=== PATIENT | female | born 1980 | race Caucasian/White ===

== ENCOUNTER 2016-07-04 21:54 | Emergency (ER) | payer OTHER ==
--- NOTE | 2016-07-04 23:09 | DIAGNOSTIC IMAGING REPORT ---
PROCEDURE: XR SINUSES LESS THAN 3 VIEWS INDICATION: MAXILLARY PRESSURE TECHNIQUE: Single Chambers view of the sinuses COMPARISON: None. FINDINGS: Normally aerated frontal and maxillary sinuses. Nasal passages clear. Septum is relatively midline. Mastoid cavities normally aerated. No facial bone fractures. No suspicious soft tissue calcifications or radiodense foreign bodies. IMPRESSION: 1. No radiographic evidence of acute sinus disease.
--- NOTE | 2016-07-04 23:12 | ED NURSING NOTES ---
Clinical Report - Nurses [facility] [address] [place] [address] 07/04/2016 21:56 Patient: CATRINA PAN TRIAGE Triage time 2208 PM. Acuity: LEVEL 5. Chief Complaint: HEADACHE and FACIAL PAIN. Alert. No acute distress. SEPSIS SCREEN: Sepsis Screen. Negative (no infection suspected/documented). DOMINICK COMA SCORE: Dominick Coma Scale: 15- eyes open spontaneously (4); best verbal response- oriented x 4 (5); best motor response- obeys commands (6). --22:20 Jazzmine Rich R.N. 22:07 07/04/16. BP: 118/85. HR: 79. RR: 17. O2 saturation: 100% on room air. Temp: 98.4 F. Pain level now: 10/16. --22:20 Jazzmine Rich R.N. Weight: 72.5 kg stated. Height/Length: 64 inches Per Patient. BMI: 27.5. --22:07 Jazzmine Rich R.N. Medications Multivitamins Oral. --22:12 Jazzmine Rich R.N. Effexor XR Oral 150 mg. --22:12 Jazzmine Rich R.N. Medication/allergy information source: the patient. --22:20 Jazzmine Rich R.N. Allergies No Known Drug Allergy. --22:12 Jazzmine Rich R.N. History Arrived by private vehicle. Historian: patient. Accompanied by family. Primary physician ([facility]). ( Pt states has been ongoing for 4 months of pressure in her head, H/A neck stiffness, n/v, feeling weak, "not herself" possible fevers. Has seen a chiropractor who she found some relief, but has not gone back. Pt does not feel "right "). This started 4 months. She has had new onset of numbness (back of neck). She has had sinus pain. No nausea, vomiting, weakness or fever. 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 PAST MEDICAL HX: Immunizations: up-to-date. 2. Para 2. Sexual history - sexually active. Uses an intrauterine device. SOCIAL HX: Never smoker. Occasional alcohol use. No drug use. No recent travel. She has had contact with a sick child. Symptoms of the sick contact include abdominal pain, nausea, vomiting and diarrhea. No infectious disease exposure. ABUSE ASSESSMENT: No report of abuse. SELF HARM ASSESSMENT: A self harm assessment was performed. The patient answered "no" to the question "Do you have thoughts of harming or killing yourself?" and "Have you recently had thoughts about harming or killing others?". FALL RISK ASSESSMENT: Fall risk assessment completed. No fall risk identified. NUTRITIONAL RISK ASSESSMENT: The nutritional risk assessment revealed no deficiencies. FUNCTIONAL ASSESSMENT: Functional assessment: no impairments noted. LEARNING NEEDS ASSESSMENT: The learning needs assessment revealed no barriers. SKIN INTEGRITY ASSESSMENT: Skin integrity risk assessment completed. No skin integrity risk identified. --22:20 Jazzmine Rich R.N. ( Pt also states of being extremely dry mouth). --22:22 Jazzmine Rich R.N. PROBLEMS: Migraine Headache. Depression. Back Pain. Abdominal Pain. Acute Pain. LNMP - Last Normal Menstrual Period. --22:13 Jazzmine Rich R.N. Interventions ID band on patient. --22:20 Jazzmine Rich R.N. PHYSICAL ASSESSMENT Ambulatory to room. GENERAL / NEURO / PSYCH: Alert. Oriented X 4. Appears in no acute distress. Speech within normal limits. Pupillary exam: Right pupil 2mm, round and briskly reactive to light directly. Left pupil: 2mm, round and briskly reactive to light directly. HEENT: Pupils equal, round and reactive to light. RESPIRATORY: Respirations not labored. Breath sounds within normal limits. CVS: Capillary refill less than 2 seconds. GI / : Abdomen soft and nontender. SKIN: Skin is warm and dry. --22:22 Jazzmine Rich R.N. NURSING PROGRESS NOTES The initial plan of care for this patient has been created This plan of care was discussed with the patient. Patient gowned. Warming measures: blanket applied. Reassurance given. Lights dimmed. Call light placed in reach. Side rails up x 1. Bed placed in lowest position. Brakes of bed on. --22:22 Jazzmine Rich R.N. DISPOSITION / DISCHARGE Departure time: 2316. Condition at departure: stable. The goals identified in the patient's plan of care were met. No learning barriers present. Discharge instructions provided and reviewed with the patient. Reviewed medication(s) side effects, precautions, dosing and course information. Prescription(s) given to the patient (Catrina verbalizes importance of not driving and/or operating any heavy machinery while taking muscle relaxant. She verbalizes safe, proper use of all prescribed pain meds for optimal pain management at home.). Patient verbalized understanding. Written instructions provided in [place]an. ( Catrina verbalizes understanding of all d/c instructions including need to f/u with PCP. She has no questions and voices no concerns at this time.). The patient was discharged by the physician. She was discharged home and accompanied by family. She left the Emergency Department ambulatory and via private vehicle. Family member driving. DOMINICK COMA SCORE: Dominick Coma Scale: 15- eyes open spontaneously (4); best verbal response- oriented x 4 (5); best motor response- obeys commands (6). --23:27 Bradley Laboy R.N. 23:19 07/04/16. BP: 113/73 (regular adult cuff) taken on the left arm, via an automated monitor, while sitting. HR: 67 (normal rate). RR: 16 (regular, unlabored and normal). O2 saturation: 100% on room air. Temp: 98.4 F (oral). Pain level now: 10/16. --23:27 Bradley Laboy R.N. Locked/Released at 07/04/2016 23:28 by Bradley Laboy R.N.
--- NOTE | 2016-07-04 23:12 | ED NURSING NOTES ---
Clinical Report - Nurses [facility] [address] [place] [address] 07/04/2016 21:56 Patient: CATRINA PAN TRIAGE Triage time 2208 PM. Acuity: LEVEL 5. Chief Complaint: HEADACHE and FACIAL PAIN. Alert. No acute distress. SEPSIS SCREEN: Sepsis Screen. Negative (no infection suspected/documented). DOMINICK COMA SCORE: Dominick Coma Scale: 15- eyes open spontaneously (4); best verbal response- oriented x 4 (5); best motor response- obeys commands (6). --22:20 Jazzmine Rich R.N. 22:07 07/04/16. BP: 118/85. HR: 79. RR: 17. O2 saturation: 100% on room air. Temp: 98.4 F. Pain level now: 10/16. --22:20 Jazzmine Rich R.N. Weight: 72.5 kg stated. Height/Length: 64 inches Per Patient. BMI: 27.5. --22:07 Jazzmine Rich R.N. Medications Multivitamins Oral. --22:12 Jazzmine Rich R.N. Effexor XR Oral 150 mg. --22:12 Jazzmine Rich R.N. Medication/allergy information source: the patient. --22:20 Jazzmine Rich R.N. Allergies No Known Drug Allergy. --22:12 Jazzmine Rich R.N. History Arrived by private vehicle. Historian: patient. Accompanied by family. Primary physician ([facility]). ( Pt states has been ongoing for 4 months of pressure in her head, H/A neck stiffness, n/v, feeling weak, "not herself" possible fevers. Has seen a chiropractor who she found some relief, but has not gone back. Pt does not feel "right "). This started 4 months. She has had new onset of numbness (back of neck). She has had sinus pain. No nausea, vomiting, weakness or fever. 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 PAST MEDICAL HX: Immunizations: up-to-date. 2. Para 2. Sexual history - sexually active. Uses an intrauterine device. SOCIAL HX: Never smoker. Occasional alcohol use. No drug use. No recent travel. She has had contact with a sick child. Symptoms of the sick contact include abdominal pain, nausea, vomiting and diarrhea. No infectious disease exposure. ABUSE ASSESSMENT: No report of abuse. SELF HARM ASSESSMENT: A self harm assessment was performed. The patient answered "no" to the question "Do you have thoughts of harming or killing yourself?" and "Have you recently had thoughts about harming or killing others?". FALL RISK ASSESSMENT: Fall risk assessment completed. No fall risk identified. NUTRITIONAL RISK ASSESSMENT: The nutritional risk assessment revealed no deficiencies. FUNCTIONAL ASSESSMENT: Functional assessment: no impairments noted. LEARNING NEEDS ASSESSMENT: The learning needs assessment revealed no barriers. SKIN INTEGRITY ASSESSMENT: Skin integrity risk assessment completed. No skin integrity risk identified. --22:20 Jazzmine Rich R.N. ( Pt also states of being extremely dry mouth). --22:22 Jazzmine Rich R.N. PROBLEMS: Migraine Headache. Depression. Back Pain. Abdominal Pain. Acute Pain. LNMP - Last Normal Menstrual Period. --22:13 Jazzmine Rich R.N. Interventions ID band on patient. --22:20 Jazzmine Rich R.N. PHYSICAL ASSESSMENT Ambulatory to room. GENERAL / NEURO / PSYCH: Alert. Oriented X 4. Appears in no acute distress. Speech within normal limits. Pupillary exam: Right pupil 2mm, round and briskly reactive to light directly. Left pupil: 2mm, round and briskly reactive to light directly. HEENT: Pupils equal, round and reactive to light. RESPIRATORY: Respirations not labored. Breath sounds within normal limits. CVS: Capillary refill less than 2 seconds. GI / : Abdomen soft and nontender. SKIN: Skin is warm and dry. --22:22 Jazzmine Rich R.N. NURSING PROGRESS NOTES The initial plan of care for this patient has been created This plan of care was discussed with the patient. Patient gowned. Warming measures: blanket applied. Reassurance given. Lights dimmed. Call light placed in reach. Side rails up x 1. Bed placed in lowest position. Brakes of bed on. --22:22 Jazzmine Rich R.N. DISPOSITION / DISCHARGE Departure time: 2316. Condition at departure: stable. The goals identified in the patient's plan of care were met. No learning barriers present. Discharge instructions provided and reviewed with the patient. Reviewed medication(s) side effects, precautions, dosing and course information. Prescription(s) given to the patient (Catrina verbalizes importance of not driving and/or operating any heavy machinery while taking muscle relaxant. She verbalizes safe, proper use of all prescribed pain meds for optimal pain management at home.). Patient verbalized understanding. Written instructions provided in [place]er. ( Catrina verbalizes understanding of all d/c instructions including need to f/u with PCP. She has no questions and voices no concerns at this time.). The patient was discharged by the physician. She was discharged home and accompanied by family. She left the Emergency Department ambulatory and via private vehicle. Family member driving. DOMINICK COMA SCORE: Dominick Coma Scale: 15- eyes open spontaneously (4); best verbal response- oriented x 4 (5); best motor response- obeys commands (6). --23:27 Bradley Laboy R.N. 23:19 07/04/16. BP: 113/73 (regular adult cuff) taken on the left arm, via an automated monitor, while sitting. HR: 67 (normal rate). RR: 16 (regular, unlabored and normal). O2 saturation: 100% on room air. Temp: 98.4 F (oral). Pain level now: 10/16. --23:27 Bradley Laboy R.N. Locked/Released at 07/04/2016 23:28 by Bradley Laboy R.N.
--- NOTE | 2016-07-04 23:12 | ED ORDER SUMMARY ---
..... Patient: CATRINA PAN OrderSheet [facility] VisitID: [id number] [address] [place] [address] 36y, F Registration Date/Time: 07/04/2016 ORDER SHEET Weight: 72.5 kg (stated) Allergies: No Known Drug Allergy GENERAL ORDERS: Sinuses less than 3V Urgent (22:35 07/04/2016 Krys AHN) (Ack 22:36 Shiela) (22:47 Bob R.NLuis Angel) MEDICATION ORDERS: IV FLUIDS: ORDER SHEET NOTES: [Electronically signed by Bradley Laboy R.N. (23:28 07/04/2016)] [Electronically signed by Sukumar Kaur MD (10:42 07/08/2016)] [Electronically locked/signed by Bradley Laboy R.N. (23:28 07/04/2016)]
--- NOTE | 2016-07-04 23:12 | ED CLINICAL REPORT ---
Clinical Report - Physicians/Mid Levels [facility] [address] [place] [address] 07/04/2016 21:56 Patient: CATRINA PAN Time Seen: 22:23 Jul 04 2016. Arrived- By private vehicle. Historian- patient. CPT: ER phys charges level 3 (#[id number]). HISTORY OF PRESENT ILLNESS Chief Complaint: HEADACHE and FACIAL PAIN. Is still present. 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 It is described as similar to previous headaches. Located in the right temporal, frontal, left temporal and occipital region. At its maximum, severity described as moderate. When seen in the E.D., severity described as moderate. Modifying factors: worsened by moving head; relieved by rest. No preceding symptoms, blurred vision, photophobia, associated nausea or numbness. No weakness or vomiting. 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 Recent medical care: The patient was seen recently at another facility in the office (Chiropractor 1 month ago.). Seen for similar symptoms. Evaluation/treatment- Manipulation of neck and face. Resolved symptoms 100%. Diagnosis: headache. ( Has not been back to the chiro). REVIEW OF SYSTEMS No fever, ear pain, sore throat, head injury or chest pain. No difficulty breathing, cough, abdominal pain, diarrhea or pain with urination. No skin rash or enlarged lymph nodes. She has had moderate sinus pressure . Associated symptoms do not include fever, sinus drainage or nausea and muscle aches. All systems otherwise negative, except as recorded above. PAST HISTORY Migraine Headache. Depression. Back Pain. Abdominal Pain. Medications: Effexor XR Oral 150 mg. Multivitamins Oral. Allergies: No Known Drug Allergy. SOCIAL HISTORY Never smoker. Occasional alcohol use. No drug use. ADDITIONAL NOTES The nursing notes have been reviewed. PHYSICAL EXAM Vital Signs: 07/04/2016 22:07 BP: 118/85. HR: 79. RR: 17. O2 saturation: 100%. Temp: 98.4 F. Pain level now: 6/10. Appearance: Alert. Eyes: Pupils equal, round and reactive to light. Eyes normal inspection. (Pain improved with palpation of the temporalis, masseters and occipital musculature.). ENT: Ears normal. Nose normal. Pharynx normal. Neck: Neck supple. CVS: Normal heart rate and rhythm. Heart sounds normal. Pulses normal. Respiratory: No respiratory distress. Breath sounds normal. Abdomen: Soft and nontender. Back: Normal inspection. Skin: Normal skin color. No rash. Extremities: Extremities exhibit normal ROM. Neuro: Oriented X 3. Alert. Mood/affect normal. Speech normal. Cranial nerves normal (as tested). No cerebellar findings. No motor deficit. No sensory deficit. Reflexes normal. LABS, X-RAYS, AND EKG Note - Tests: (Chambers sinus negative.). PROGRESS AND PROCEDURES Patient/family counseled. Disposition: Discharged. Condition: stable. CLINICAL IMPRESSION Musculoskeletal pain and headache. INSTRUCTIONS Apply moist heat for 15-20 minutes three times a day for five days until better. No strenuous activity. Rest. (try to get back to chiropractor.). Warnings: Further evaluation is necessary. GENERAL WARNINGS: Return or contact your physician immediately if your condition worsens or changes unexpectedly, if not improving as expected, or if other problems arise. Prescription Medications: Ibuprofen 600mg tablets: take 1 tablet orally every 8 hours as needed for pain. Dispense thirty (30). No refills. Flexeril 5 mg: take 1-2 orally every 8 hours as needed for muscle spasm or pain. Dispense fifteen (15). No refills. Substitution is permissible. Follow-up: Follow up with your doctor in one week. Call for an appointment. Understanding of the discharge instructions verbalized by patient. (Electronically signed by Sukumar Kaur MD 07/08/2016 10:42)
--- NOTE | 2016-07-04 23:12 | ED ORDER SUMMARY ---
..... Patient: CATRINA PAN OrderSheet [facility] VisitID: [id number] [address] [place] [address] 36y, F Registration Date/Time: 07/04/2016 ORDER SHEET Weight: 72.5 kg (stated) Allergies: No Known Drug Allergy GENERAL ORDERS: Sinuses less than 3V Urgent (22:35 07/04/2016 Krys AHN) (Ack 22:36 Shiela) (22:47 Bob R.NLuis Angel) MEDICATION ORDERS: IV FLUIDS: ORDER SHEET NOTES: [Electronically signed by Bradley Laboy R.N. (23:28 07/04/2016)] [Electronically signed by Sukumar Kaur MD (10:42 07/08/2016)] [Electronically locked/signed by Bradley Laboy R.N. (23:28 07/04/2016)]
--- NOTE | 2016-07-04 23:12 | ED CLINICAL REPORT ---
Clinical Report - Physicians/Mid Levels [facility] [address] [place] [address] 07/04/2016 21:56 Patient: CATRINA PAN Time Seen: 22:23 Jul 04 2016. Arrived- By private vehicle. Historian- patient. CPT: ER phys charges level 3 (#[id number]). HISTORY OF PRESENT ILLNESS Chief Complaint: HEADACHE and FACIAL PAIN. Is still present. 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 It is described as similar to previous headaches. Located in the right temporal, frontal, left temporal and occipital region. At its maximum, severity described as moderate. When seen in the E.D., severity described as moderate. Modifying factors: worsened by moving head; relieved by rest. No preceding symptoms, blurred vision, photophobia, associated nausea or numbness. No weakness or vomiting. 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 Recent medical care: The patient was seen recently at another facility in the office (Chiropractor 1 month ago.). Seen for similar symptoms. Evaluation/treatment- Manipulation of neck and face. Resolved symptoms 100%. Diagnosis: headache. ( Has not been back to the chiro). REVIEW OF SYSTEMS No fever, ear pain, sore throat, head injury or chest pain. No difficulty breathing, cough, abdominal pain, diarrhea or pain with urination. No skin rash or enlarged lymph nodes. She has had moderate sinus pressure . Associated symptoms do not include fever, sinus drainage or nausea and muscle aches. All systems otherwise negative, except as recorded above. PAST HISTORY Migraine Headache. Depression. Back Pain. Abdominal Pain. Medications: Effexor XR Oral 150 mg. Multivitamins Oral. Allergies: No Known Drug Allergy. SOCIAL HISTORY Never smoker. Occasional alcohol use. No drug use. ADDITIONAL NOTES The nursing notes have been reviewed. PHYSICAL EXAM Vital Signs: 07/04/2016 22:07 BP: 118/85. HR: 79. RR: 17. O2 saturation: 100%. Temp: 98.4 F. Pain level now: 6/10. Appearance: Alert. Eyes: Pupils equal, round and reactive to light. Eyes normal inspection. (Pain improved with palpation of the temporalis, masseters and occipital musculature.). ENT: Ears normal. Nose normal. Pharynx normal. Neck: Neck supple. CVS: Normal heart rate and rhythm. Heart sounds normal. Pulses normal. Respiratory: No respiratory distress. Breath sounds normal. Abdomen: Soft and nontender. Back: Normal inspection. Skin: Normal skin color. No rash. Extremities: Extremities exhibit normal ROM. Neuro: Oriented X 3. Alert. Mood/affect normal. Speech normal. Cranial nerves normal (as tested). No cerebellar findings. No motor deficit. No sensory deficit. Reflexes normal. LABS, X-RAYS, AND EKG Note - Tests: (Chambers sinus negative.). PROGRESS AND PROCEDURES Patient/family counseled. Disposition: Discharged. Condition: stable. CLINICAL IMPRESSION Musculoskeletal pain and headache. INSTRUCTIONS Apply moist heat for 15-20 minutes three times a day for five days until better. No strenuous activity. Rest. (try to get back to chiropractor.). Warnings: Further evaluation is necessary. GENERAL WARNINGS: Return or contact your physician immediately if your condition worsens or changes unexpectedly, if not improving as expected, or if other problems arise. Prescription Medications: Ibuprofen 600mg tablets: take 1 tablet orally every 8 hours as needed for pain. Dispense thirty (30). No refills. Flexeril 5 mg: take 1-2 orally every 8 hours as needed for muscle spasm or pain. Dispense fifteen (15). No refills. Substitution is permissible. Follow-up: Follow up with your doctor in one week. Call for an appointment. Understanding of the discharge instructions verbalized by patient. (Electronically signed by Sukumar Kaur MD 07/08/2016 10:42)
--- NOTE | 2016-07-08 10:43 | ED DISCHARGE INSTRUCTIONS ---
Patient: CATRINA PAN General Instructions [facility] VisitID: [id number] [address] [place] [address] 36y, F Registration Date/Time: 07/04/2016 Musculoskeletal pain and headache. INSTRUCTIONS Apply moist heat for 15-20 minutes three times a day for five days until better. No strenuous activity. Rest. (try to get back to chiropractor.). Warnings: Further evaluation is necessary. GENERAL WARNINGS: Return or contact your physician immediately if your condition worsens or changes unexpectedly, if not improving as expected, or if other problems arise. Prescription Medications: Ibuprofen 600mg tablets: take 1 tablet orally every 8 hours as needed for pain. Dispense thirty (30). No refills. Flexeril 5 mg: take 1-2 orally every 8 hours as needed for muscle spasm or pain. Dispense fifteen (15). No refills. Substitution is permissible. Follow-up: Follow up with your doctor in one week. Call for an appointment. Understanding of the discharge instructions verbalized by patient. ADDITIONAL INFORMATION Cyclobenzaprine Hydrochloride Oral tablet What is this medicine? CYCLOBENZAPRINE (sye kloe SRINI za preen) is a muscle relaxer. It is used to treat muscle pain, spasms, and stiffness. How should I use this medicine? Take this medicine by mouth with a glass of water. Follow the directions on the prescription label. If this medicine upsets your stomach, take it with food or milk. Take your medicine at regular intervals. Do not take it more often than directed. Talk to your blunger regarding the use of this medicine in children. Special care may be needed. What side effects may I notice from receiving this medicine? Side effects that you should report to your doctor or health home care giver as soon as possible: allergic reactions like skin rash, itching or hives, swelling of the face, lips, or tongue chest pain fast heartbeat hallucinations seizures vomiting Side effects that usually do not require medical attention (report to your doctor or health home care giver if they continue or are bothersome): headache What may interact with this medicine? Do not take this medicine with any of the following medications: cisapride droperidol flecainide grepafloxacin halofantrine levomethadyl MAOIs like Carbex, Eldepryl, Marplan, Nardil, and Parnate nilotinib pimozide probucol sertindole This medicine may also interact with the following medications: abarelix alcohol contrast dyes dolasetron guanethidine medicines for cancer medicines for depression, anxiety, or psychotic disturbances medicines to treat an irregular heartbeat medicines used for sleep or numbness during surgery or procedure methadone octreotide ondansetron palonosetron phenothiazines like chlorpromazine, mesoridazine, prochlorperazine, thioridazine some medicines for infection like alfuzosin, chloroquine, clarithromycin, levofloxacin, mefloquine, pentamidine, troleandomycin tramadol vardenafil What if I miss a dose? If you miss a dose, take it as soon as you can. If it is almost time for your next dose, take only that dose. Do not take double or extra doses. Where should I keep my medicine? Keep out of the reach of children. Store at room temperature between 15 and 30 degrees C (59 and 86 degrees F). Keep container tightly closed. Throw away any unused medicine after the expiration date. What should I tell my health care provider before I take this medicine? They need to know if you have any of these conditions: heart disease, irregular heartbeat, or previous heart attack liver disease thyroid problem an unusual or allergic reaction to cyclobenzaprine, tricyclic antidepressants, lactose, other medicines, foods, dyes, or preservatives or trying to get breast-feeding What should I watch for while using this medicine? Check with your doctor or health home care giver if your condition does not improve within 1 to 3 weeks. You may get drowsy or dizzy when you first start taking the medicine or change doses. Do not drive, use machinery, or do anything that may be dangerous until you know how the medicine affects you. Stand or sit up slowly. Your mouth may get dry. Drinking water, chewing sugarless gum, or sucking on hard candy may help. You have been given the following additional information: Cyclobenzaprine Hydrochloride Oral tablet No strenuous activity. Rest. (Electronically signed by Sukumar Kaur MD 07/08/2016 10:42)
--- NOTE | 2016-07-08 10:43 | ED MAR SUMMARY ---
..... Medication Administration Record [address] [place], [place] [id number] Patient: CATRINA PAN Visit ID: [id number] 36y, F Weight: 72.5 kg Height/Length: 64 in BMI: 27.5 ALLERGIES: No Known Drug Allergy
--- NOTE | 2016-07-08 10:43 | ED MAR SUMMARY ---
..... Medication Administration Record [facility] [address] [place], [place] [id number] Patient: CATRINA PAN Visit ID: [id number] 36y, F Weight: 72.5 kg Height/Length: 64 in BMI: 27.5 ALLERGIES: No Known Drug Allergy
--- NOTE | 2016-07-08 10:43 | ED MED RECONCILIATION SUMMARY ---
Patient: CATRINA PAN Medication Reconciliation Report [facility] VisitID: [id number] [address] [place] [address] 36y, F Registration Date/Time: 07/04/2016 Weight: 72.5 kg Height/Length: 64 in. BMI: 27.5 ALLERGIES: No Known Drug Allergy The patient's Home Medications are listed below: THE FOLLOWING MEDICATIONS NEED TO BE RECONCILED: Effexor XR Oral 150 mg Multivitamins Oral The source(s) of the original Home Medication information: patient The following Medications were given to the patient in the Emergency Department: None. The following Medications were prescribed to the patient: Ibuprofen 600mg tablets: take 1 tablet orally every 8 hours as needed for pain. Dispense thirty (30). No refills. -- Sukumar Kaur MD Flexeril 5 mg: take 1-2 orally every 8 hours as needed for muscle spasm or pain. Dispense fifteen (15). No refills. Substitution is permissible. -- Sukumar Kaur MD
--- NOTE | 2016-07-08 10:43 | ED DISCHARGE INSTRUCTIONS ---
Patient: CATRINA PAN General Instructions [facility] VisitID: [id number] [address] [place] [address] 36y, F Registration Date/Time: 07/04/2016 Musculoskeletal pain and headache. INSTRUCTIONS Apply moist heat for 15-20 minutes three times a day for five days until better. No strenuous activity. Rest. (try to get back to chiropractor.). Warnings: Further evaluation is necessary. GENERAL WARNINGS: Return or contact your physician immediately if your condition worsens or changes unexpectedly, if not improving as expected, or if other problems arise. Prescription Medications: Ibuprofen 600mg tablets: take 1 tablet orally every 8 hours as needed for pain. Dispense thirty (30). No refills. Flexeril 5 mg: take 1-2 orally every 8 hours as needed for muscle spasm or pain. Dispense fifteen (15). No refills. Substitution is permissible. Follow-up: Follow up with your doctor in one week. Call for an appointment. Understanding of the discharge instructions verbalized by patient. ADDITIONAL INFORMATION Cyclobenzaprine Hydrochloride Oral tablet What is this medicine? CYCLOBENZAPRINE (sye kloe SRINI za preen) is a muscle relaxer. It is used to treat muscle pain, spasms, and stiffness. How should I use this medicine? Take this medicine by mouth with a glass of water. Follow the directions on the prescription label. If this medicine upsets your stomach, take it with food or milk. Take your medicine at regular intervals. Do not take it more often than directed. Talk to your ship washer regarding the use of this medicine in children. Special care may be needed. What side effects may I notice from receiving this medicine? Side effects that you should report to your doctor or health animal caregiver as soon as possible: allergic reactions like skin rash, itching or hives, swelling of the face, lips, or tongue chest pain fast heartbeat hallucinations seizures vomiting Side effects that usually do not require medical attention (report to your doctor or health animal caregiver if they continue or are bothersome): headache What may interact with this medicine? Do not take this medicine with any of the following medications: cisapride droperidol flecainide grepafloxacin halofantrine levomethadyl MAOIs like Carbex, Eldepryl, Marplan, Nardil, and Parnate nilotinib pimozide probucol sertindole This medicine may also interact with the following medications: abarelix alcohol contrast dyes dolasetron guanethidine medicines for cancer medicines for depression, anxiety, or psychotic disturbances medicines to treat an irregular heartbeat medicines used for sleep or numbness during surgery or procedure methadone octreotide ondansetron palonosetron phenothiazines like chlorpromazine, mesoridazine, prochlorperazine, thioridazine some medicines for infection like alfuzosin, chloroquine, clarithromycin, levofloxacin, mefloquine, pentamidine, troleandomycin tramadol vardenafil What if I miss a dose? If you miss a dose, take it as soon as you can. If it is almost time for your next dose, take only that dose. Do not take double or extra doses. Where should I keep my medicine? Keep out of the reach of children. Store at room temperature between 15 and 30 degrees C (59 and 86 degrees F). Keep container tightly closed. Throw away any unused medicine after the expiration date. What should I tell my health care provider before I take this medicine? They need to know if you have any of these conditions: heart disease, irregular heartbeat, or previous heart attack liver disease thyroid problem an unusual or allergic reaction to cyclobenzaprine, tricyclic antidepressants, lactose, other medicines, foods, dyes, or preservatives or trying to get breast-feeding What should I watch for while using this medicine? Check with your doctor or health animal caregiver if your condition does not improve within 1 to 3 weeks. You may get drowsy or dizzy when you first start taking the medicine or change doses. Do not drive, use machinery, or do anything that may be dangerous until you know how the medicine affects you. Stand or sit up slowly. Your mouth may get dry. Drinking water, chewing sugarless gum, or sucking on hard candy may help. You have been given the following additional information: Cyclobenzaprine Hydrochloride Oral tablet No strenuous activity. Rest. (Electronically signed by Sukumar Kaur MD 07/08/2016 10:42)
--- NOTE | 2016-07-08 10:43 | ED MED RECONCILIATION SUMMARY ---
Patient: CATRINA PAN Medication Reconciliation Report [facility] VisitID: [id number] [address] [place] [address] 36y, F Registration Date/Time: 07/04/2016 Weight: 72.5 kg Height/Length: 64 in. BMI: 27.5 ALLERGIES: No Known Drug Allergy The patient's Home Medications are listed below: THE FOLLOWING MEDICATIONS NEED TO BE RECONCILED: Effexor XR Oral 150 mg Multivitamins Oral The source(s) of the original Home Medication information: patient The following Medications were given to the patient in the Emergency Department: None. The following Medications were prescribed to the patient: Ibuprofen 600mg tablets: take 1 tablet orally every 8 hours as needed for pain. Dispense thirty (30). No refills. -- Sukumar Kaur MD Flexeril 5 mg: take 1-2 orally every 8 hours as needed for muscle spasm or pain. Dispense fifteen (15). No refills. Substitution is permissible. -- Sukumar Kaur MD
== END 2016-07-04 23:17 | disposition home or self-care (01) ==
LOC: ED SRH 21:54
DX: M79.1 Myalgia (principal); R51 Headache

== ENCOUNTER 2016-09-01 19:20 | Emergency (ER) | payer OTHER ==
--- NOTE | 2016-09-01 20:18 | ED ORDER SUMMARY ---
..... Patient: CATRINA PAN OrderSheet [facility] VisitID: [id number] [address] [place] [address] 36y, F Registration Date/Time: 09/01/2016 ORDER SHEET Weight: 72.5 kg (stated) Allergies: None GENERAL ORDERS: MEDICATION ORDERS: Hydrocodone-APAP PO 5/325 mg (NOW, HIGH ALERT MEDICATION) (20:11 09/01/2016 HBivens A.R.N.P.) (Ack 20:12 KPage-Kuchan R.N.) (20:26 KPage-Kuchan R.N.) Pepcid PO 40 mg (NOW) (20:11 09/01/2016 HBivens A.R.N.P.) (Ack 20:12 KPage-Kuchan R.N.) (20:26 KPage-Kuchan R.N.) IV FLUIDS: ORDER SHEET NOTES: [Electronically signed by Cal ZapataNLuis Angel (20:45 09/01/2016)] [Electronically signed by Pushpa BianchiR.N.P. (21:20 09/01/2016)] [Electronically locked/signed by Cal Zapata R.N. (20:45 09/01/2016)]
--- NOTE | 2016-09-01 20:18 | ED CLINICAL REPORT ---
Clinical Report - Physicians/Mid Levels [facility] [address] [place] [address] 09/01/2016 19:21 Patient: CATRINA PAN Time Seen: 19:42; upon arrival, initial patient contact, initial documentation, patient care assumed. Arrived- By private vehicle. Historian- patient and mother. HISTORY OF PRESENT ILLNESS Chief Complaint: ABDOMINAL PAIN. At its maximum, severity described as severe. When seen in the E.D., severity described as severe. Modifying factors- relieved by food. Not worsened by anything. It is described as "pain" and burning. No radiation. It is described as located in the epigastric area. This started about 3 - 4 days ago and is still present. It was abrupt in onset and has been constant. No nausea, loss of appetite or vomiting. She has had loose stools. This has occurred only once. No additional abdominal pain. No recent travel. Similar symptoms previously: None. Recent medical care: The patient was seen recently in the office. ( today went to pcp for same thing, given gi cocktail, didn't help, blood work done, no rx given, appt tomorrow with gi). REVIEW OF SYSTEMS No constipation, black stools, hematemesis, difficulty with urination or pain with urination. No urinary frequency, bloody stools, fever, chest pain or difficulty breathing. Denies current . All systems otherwise negative, except as recorded above. PAST HISTORY See nurses notes. ADDITIONAL SURGERIES: Gastric sleeve . --19:38 Page-[place] R.N. SOCIAL HISTORY Never smoker. Occasional alcohol use; consumes wine. No drug use. No recent travel. Is a local resident. FAMILY HISTORY Negative. ADDITIONAL NOTES The nursing notes have been reviewed with agreement regarding the chief complaint, HPI, ROS, PMH and patient medications and allergies. PHYSICAL EXAM Vital Signs: 09/01/2016 19:34 BP: 115/73. HR: 82. RR: 17. O2 saturation: 100%. Temp: 98.2 F. Pain level now: 10. Have been reviewed as normal and appear to be correct. Appearance: Alert. Oriented X3. No acute distress. Eyes: Pupils equal, round and reactive to light. Eyes normal inspection. Neck: Normal inspection. Neck supple. CVS: Normal heart rate and rhythm. Heart sounds normal. Pulses normal. Respiratory: No respiratory distress. Breath sounds normal. Chest nontender. Abdomen: Soft and nontender. Bowel sounds normal. No organomegaly. No mass. Back: Normal inspection. Skin: Skin warm and dry. Normal skin color. No rash. Normal skin turgor. Extremities: Extremities exhibit normal ROM. No lower extremity edema. Neuro: Oriented X 3. No motor deficit. No sensory deficit. PROGRESS AND PROCEDURES Course of Care: labs reviewed from clinic with pt, cbc and cmp done, labs normal, tx plan discussed with doing amylase and lipase or just treating the pain and f/u tomorrow as scheduled with gi, pt decided to just f/u. Patient and family counseled in person regarding the patient's stable condition and diagnosis. Differential Diagnosis: I considered gastritis, peptic ulcer disease, gastroesophageal reflux disease, mesenteric lymphadenitis, diverticulitis, colon cancer, ulcerative colitis, Crohn's disease, biliary colic, cholecystitis, cholelithiasis, hepatitis, pancreatitis, common bile duct obstruction, cholangitis, hernia, urinary tract infection, ureterolithiasis and viral syndrome as a possible cause of abdominal pain in this patient. This is a partial list of diagnoses considered. Above considerations are based on history, physical exam and laboratory data. Differential diagnosis was discussed with patient. Disposition: Discharged home in good and improved condition (20:18). Condition: good and stable. CLINICAL IMPRESSION Acute epigastric abdominal pain of undetermined cause. INSTRUCTIONS Warnings: GENERAL WARNINGS: Return or contact your physician immediately if your condition worsens or changes unexpectedly, if not improving as expected, or if other problems arise. SPECIFICALLY, return if you develop pain in the abdomen or pelvis, fever, the inability to keep fluids down, blood in vomitus, blood in diarrhea, fainting or lightheadedness. Prescription Medications: Pepcid 20 mg RPD: take 1 orally every 12 hours. Dispense thirty (30). No refills. Ultram 50 mg tablets: take 1-2 orally every 6 hours as needed for pain. Dispense twenty (20). No refills. Substitution is permissible. Follow-up: Follow up with a procurement professional logistics tomorrow as scheduled even if well. Summary of care provided to patient. Understanding of the discharge instructions verbalized by patient. (Electronically signed by Pushpa Bianchi A.R.N.P. 09/01/2016 21:20)
--- NOTE | 2016-09-01 20:18 | ED NURSING NOTES ---
Clinical Report - Nurses [facility] [address] [place] [address] 09/01/2016 19:21 Patient: CATRINA PAN TRIAGE Triage time 19:34 Sep 01 2016. Chief Complaint: ABDOMINAL PAIN and (pt went to pcp today for mid abd pain, describes as "burning" pt was given a GI cocktail without relief, pain improves right after eating). Alert. No acute distress. SEPSIS SCREEN: Sepsis Screen. Negative (no infection suspected/documented). --19:41 Cal Zapata R.N. 19:34 09/01/16. BP: 115/73 taken on the left arm, while lying. HR: 82. RR: 17. O2 saturation: 100% on room air. Temp: 98.2 F (oral). Pain level now: 01/16. --19:41 Cal Zapata R.N. Weight: 72.5 kg stated. Height/Length: 64 inches Per Patient. BMI: 27.5. --19:38 Cal Zapata R.N. Medications Prevacid. --19:37 Cal Zapata R.N. Effe. --19:37 Cal Zapata R.N. Calcium + D3 Oral. Effexor XR Oral. Prevacid Oral. --19:38 Cal Zapata R.N. Vitamins Oral. --19:38 Cal Zapata R.N. Medication/allergy information source: the patient. --19:41 Cal Zapata R.N. Allergies None. --19:37 Cal Zapata R.N. History Historian: patient. Onset. (tuesday). She has had diarrhea (after pt saw today). She has had burning, constant abdominal pain. Treatment CRAPS DEALER: (antacids). PAST MEDICAL HX: Immunizations: up-to-date. Last normal menstrual period- August 25. SOCIAL HX: Never smoker. Occasional alcohol use; consumes wine. No drug use. No infectious disease exposure. No known contact with a sick individual. ABUSE ASSESSMENT: No report of abuse. SELF HARM ASSESSMENT: A self harm assessment was performed. The patient answered "no" to the question "Have you recently felt down, depressed, or hopeless?", "Have you noticed less interest or pleasure in doing things?", "Do you have thoughts of harming or killing yourself?", "Are you here because you tried to hurt yourself?", "Have you ever tried to hurt yourself before today?", "Have you recently had thoughts about harming or killing others?" and "Do you have any dangerous items in your possession?". FALL RISK ASSESSMENT: Fall risk assessment completed. No fall risk identified. NUTRITIONAL RISK ASSESSMENT: The nutritional risk assessment revealed no deficiencies. FUNCTIONAL ASSESSMENT: Functional assessment: no impairments noted. LEARNING NEEDS ASSESSMENT: The learning needs assessment revealed no barriers. SKIN INTEGRITY ASSESSMENT: Skin integrity risk assessment completed. No skin integrity risk identified. --19:41 Cal Zapata R.N. ADDITIONAL SURGERIES: Gastric sleeve . --19:38 Cal Zapata R.N. Interventions ID band on patient. To treatment room. --19:41 Cal Zapata R.N. PHYSICAL ASSESSMENT ( per pt "at night if it hurts I will push on it and hunch over and it almost feels better"). GENERAL / NEURO / PSYCH: Alert. Oriented X 4. Appears in no acute distress. HEENT: Mucous membranes are pink. RESPIRATORY: Respirations not labored. Breath sounds within normal limits. CVS: Capillary refill less than 2 seconds. GI / : Abdomen soft and nontender. Bowel sounds within normal limits. SKIN: Skin is warm and dry. --19:42 Cal Zapata R.N. Ambulatory to room. Patient gowned. --19:42 Cal Zapata R.N. NURSING PROGRESS NOTES Head of bed elevated. Reassurance given. Two patient identifiers checked. Call light placed in reach. Side rails up x 1. Bed placed in lowest position. Brakes of bed on. Patient ready for evaluation- chart flagged. Patient waiting for evaluation. --19:42 Cal Zapata R.N. Checked patient name and birthdate: patient confirmed. Instructions provided to collect clean catch urine and patient verbalized understanding. Clean catch urine collected; sample sent to lab for urinalysis. Specimen labeled in the presence of the patient. --19:44 Cal Zapata R.N. 20:21 09/01/2016 Hydrocodone-APAP (Hydrocodone-Acetaminophen) PO 5/325 mg Tablets 1 tab given. Allergies verified, confirmed 5 rights and sedative warning given. --20:26 Cal Zapata R.N. 20:21 09/01/2016 Pepcid (Famotidine) PO Tablets 40 mg given. Allergies verified and confirmed 5 rights. --20:26 Cal Zapata R.N. DISPOSITION / DISCHARGE Departure time: 2013. No learning barriers present. Discharge instructions provided and reviewed with the patient. Reviewed medication(s) side effects, precautions and course information. Prescription(s) given to the patient. Reviewed referrals (pt to keep apt tomorrow with GI dr). Patient verbalized understanding. Written instructions provided in [place]. The patient was discharged by the nurse practitioner. She was discharged home and accompanied by parent. She left the Emergency Department ambulatory and via private vehicle. Parent driving. --20:44 Cal Zapata R.N. 20:42 09/01/16. BP: 109/69. HR: 76. RR: 17. O2 saturation: 100%. Temp: 98 F. Pain level now: 01/16. --20:44 Cal Zapata R.N. Departure time: 2040. ( corrected departure time is 2040). --20:45 Cal Zapata R.N. Locked/Released at 09/01/2016 20:45 by Cal Zapata R.N.
--- NOTE | 2016-09-01 20:18 | ED NURSING NOTES ---
Clinical Report - Nurses [facility] [address] [place] [address] 09/01/2016 19:21 Patient: CATRINA PAN TRIAGE Triage time 19:34 Sep 01 2016. Chief Complaint: ABDOMINAL PAIN and (pt went to pcp today for mid abd pain, describes as "burning" pt was given a GI cocktail without relief, pain improves right after eating). Alert. No acute distress. SEPSIS SCREEN: Sepsis Screen. Negative (no infection suspected/documented). --19:41 Cal Zapata R.N. 19:34 09/01/16. BP: 115/73 taken on the left arm, while lying. HR: 82. RR: 17. O2 saturation: 100% on room air. Temp: 98.2 F (oral). Pain level now: 01/16. --19:41 Cal Zapata R.N. Weight: 72.5 kg stated. Height/Length: 64 inches Per Patient. BMI: 27.5. --19:38 Cal Zapata R.N. Medications Prevacid. --19:37 Cal Zapata R.N. Effe. --19:37 Cal Zapata R.N. Calcium + D3 Oral. Effexor XR Oral. Prevacid Oral. --19:38 Cal Zapata R.N. Vitamins Oral. --19:38 Cal Zapata R.N. Medication/allergy information source: the patient. --19:41 Cal Zapata R.N. Allergies None. --19:37 Cal Zapata R.N. History Historian: patient. Onset. (tuesday). She has had diarrhea (after pt saw today). She has had burning, constant abdominal pain. Treatment STONE GLUER: (antacids). PAST MEDICAL HX: Immunizations: up-to-date. Last normal menstrual period- August 25. SOCIAL HX: Never smoker. Occasional alcohol use; consumes wine. No drug use. No infectious disease exposure. No known contact with a sick individual. ABUSE ASSESSMENT: No report of abuse. SELF HARM ASSESSMENT: A self harm assessment was performed. The patient answered "no" to the question "Have you recently felt down, depressed, or hopeless?", "Have you noticed less interest or pleasure in doing things?", "Do you have thoughts of harming or killing yourself?", "Are you here because you tried to hurt yourself?", "Have you ever tried to hurt yourself before today?", "Have you recently had thoughts about harming or killing others?" and "Do you have any dangerous items in your possession?". FALL RISK ASSESSMENT: Fall risk assessment completed. No fall risk identified. NUTRITIONAL RISK ASSESSMENT: The nutritional risk assessment revealed no deficiencies. FUNCTIONAL ASSESSMENT: Functional assessment: no impairments noted. LEARNING NEEDS ASSESSMENT: The learning needs assessment revealed no barriers. SKIN INTEGRITY ASSESSMENT: Skin integrity risk assessment completed. No skin integrity risk identified. --19:41 Cal Zapata R.N. ADDITIONAL SURGERIES: Gastric sleeve . --19:38 Cal Zapata R.N. Interventions ID band on patient. To treatment room. --19:41 Cal Zapata R.N. PHYSICAL ASSESSMENT ( per pt "at night if it hurts I will push on it and hunch over and it almost feels better"). GENERAL / NEURO / PSYCH: Alert. Oriented X 4. Appears in no acute distress. HEENT: Mucous membranes are pink. RESPIRATORY: Respirations not labored. Breath sounds within normal limits. CVS: Capillary refill less than 2 seconds. GI / : Abdomen soft and nontender. Bowel sounds within normal limits. SKIN: Skin is warm and dry. --19:42 Cal Zapata R.N. Ambulatory to room. Patient gowned. --19:42 Cal Zapata R.N. NURSING PROGRESS NOTES Head of bed elevated. Reassurance given. Two patient identifiers checked. Call light placed in reach. Side rails up x 1. Bed placed in lowest position. Brakes of bed on. Patient ready for evaluation- chart flagged. Patient waiting for evaluation. --19:42 Cal Zapata R.N. Checked patient name and birthdate: patient confirmed. Instructions provided to collect clean catch urine and patient verbalized understanding. Clean catch urine collected; sample sent to lab for urinalysis. Specimen labeled in the presence of the patient. --19:44 Cal Zapata R.N. 20:21 09/01/2016 Hydrocodone-APAP (Hydrocodone-Acetaminophen) PO 5/325 mg Tablets 1 tab given. Allergies verified, confirmed 5 rights and sedative warning given. --20:26 Cal Zapata R.N. 20:21 09/01/2016 Pepcid (Famotidine) PO Tablets 40 mg given. Allergies verified and confirmed 5 rights. --20:26 Cal Zapata R.N. DISPOSITION / DISCHARGE Departure time: 2013. No learning barriers present. Discharge instructions provided and reviewed with the patient. Reviewed medication(s) side effects, precautions and course information. Prescription(s) given to the patient. Reviewed referrals (pt to keep apt tomorrow with GI dr). Patient verbalized understanding. Written instructions provided in [place]. The patient was discharged by the nurse practitioner. She was discharged home and accompanied by parent. She left the Emergency Department ambulatory and via private vehicle. Parent driving. --20:44 Cal Zapata R.N. 20:42 09/01/16. BP: 109/69. HR: 76. RR: 17. O2 saturation: 100%. Temp: 98 F. Pain level now: 01/16. --20:44 Cal Zapata R.N. Departure time: 2040. ( corrected departure time is 2040). --20:45 Cal Zapata R.N. Locked/Released at 09/01/2016 20:45 by Cal Zapata R.N.
--- NOTE | 2016-09-01 20:18 | ED ORDER SUMMARY ---
..... Patient: CATRINA PAN OrderSheet [facility] VisitID: [id number] [address] [place] [address] 36y, F Registration Date/Time: 09/01/2016 ORDER SHEET Weight: 72.5 kg (stated) Allergies: None GENERAL ORDERS: MEDICATION ORDERS: Hydrocodone-APAP PO 5/325 mg (NOW, HIGH ALERT MEDICATION) (20:11 09/01/2016 HBivens A.R.N.P.) (Ack 20:12 KPage-Kuchan R.N.) (20:26 KPage-Kuchan R.N.) Pepcid PO 40 mg (NOW) (20:11 09/01/2016 HBivens A.R.N.P.) (Ack 20:12 KPage-Kuchan R.N.) (20:26 KPage-Kuchan R.N.) IV FLUIDS: ORDER SHEET NOTES: [Electronically signed by Cal ZapataNLuis Angel (20:45 09/01/2016)] [Electronically signed by Pushpa BianchiR.N.P. (21:20 09/01/2016)] [Electronically locked/signed by Cal Zapata R.N. (20:45 09/01/2016)]
--- NOTE | 2016-09-01 20:18 | ED CLINICAL REPORT ---
Clinical Report - Physicians/Mid Levels [facility] [address] [place] [address] 09/01/2016 19:21 Patient: CATRINA PAN Time Seen: 19:42; upon arrival, initial patient contact, initial documentation, patient care assumed. Arrived- By private vehicle. Historian- patient and mother. HISTORY OF PRESENT ILLNESS Chief Complaint: ABDOMINAL PAIN. At its maximum, severity described as severe. When seen in the E.D., severity described as severe. Modifying factors- relieved by food. Not worsened by anything. It is described as "pain" and burning. No radiation. It is described as located in the epigastric area. This started about 3 - 4 days ago and is still present. It was abrupt in onset and has been constant. No nausea, loss of appetite or vomiting. She has had loose stools. This has occurred only once. No additional abdominal pain. No recent travel. Similar symptoms previously: None. Recent medical care: The patient was seen recently in the office. ( today went to pcp for same thing, given gi cocktail, didn't help, blood work done, no rx given, appt tomorrow with gi). REVIEW OF SYSTEMS No constipation, black stools, hematemesis, difficulty with urination or pain with urination. No urinary frequency, bloody stools, fever, chest pain or difficulty breathing. Denies current . All systems otherwise negative, except as recorded above. PAST HISTORY See nurses notes. ADDITIONAL SURGERIES: Gastric sleeve . --19:38 Page-Cal [place] R.N. SOCIAL HISTORY Never smoker. Occasional alcohol use; consumes wine. No drug use. No recent travel. Is a local resident. FAMILY HISTORY Negative. ADDITIONAL NOTES The nursing notes have been reviewed with agreement regarding the chief complaint, HPI, ROS, PMH and patient medications and allergies. PHYSICAL EXAM Vital Signs: 09/01/2016 19:34 BP: 115/73. HR: 82. RR: 17. O2 saturation: 100%. Temp: 98.2 F. Pain level now: 10. Have been reviewed as normal and appear to be correct. Appearance: Alert. Oriented X3. No acute distress. Eyes: Pupils equal, round and reactive to light. Eyes normal inspection. Neck: Normal inspection. Neck supple. CVS: Normal heart rate and rhythm. Heart sounds normal. Pulses normal. Respiratory: No respiratory distress. Breath sounds normal. Chest nontender. Abdomen: Soft and nontender. Bowel sounds normal. No organomegaly. No mass. Back: Normal inspection. Skin: Skin warm and dry. Normal skin color. No rash. Normal skin turgor. Extremities: Extremities exhibit normal ROM. No lower extremity edema. Neuro: Oriented X 3. No motor deficit. No sensory deficit. PROGRESS AND PROCEDURES Course of Care: labs reviewed from clinic with pt, cbc and cmp done, labs normal, tx plan discussed with doing amylase and lipase or just treating the pain and f/u tomorrow as scheduled with gi, pt decided to just f/u. Patient and family counseled in person regarding the patient's stable condition and diagnosis. Differential Diagnosis: I considered gastritis, peptic ulcer disease, gastroesophageal reflux disease, mesenteric lymphadenitis, diverticulitis, colon cancer, ulcerative colitis, Crohn's disease, biliary colic, cholecystitis, cholelithiasis, hepatitis, pancreatitis, common bile duct obstruction, cholangitis, hernia, urinary tract infection, ureterolithiasis and viral syndrome as a possible cause of abdominal pain in this patient. This is a partial list of diagnoses considered. Above considerations are based on history, physical exam and laboratory data. Differential diagnosis was discussed with patient. Disposition: Discharged home in good and improved condition (20:18). Condition: good and stable. CLINICAL IMPRESSION Acute epigastric abdominal pain of undetermined cause. INSTRUCTIONS Warnings: GENERAL WARNINGS: Return or contact your physician immediately if your condition worsens or changes unexpectedly, if not improving as expected, or if other problems arise. SPECIFICALLY, return if you develop pain in the abdomen or pelvis, fever, the inability to keep fluids down, blood in vomitus, blood in diarrhea, fainting or lightheadedness. Prescription Medications: Pepcid 20 mg RPD: take 1 orally every 12 hours. Dispense thirty (30). No refills. Ultram 50 mg tablets: take 1-2 orally every 6 hours as needed for pain. Dispense twenty (20). No refills. Substitution is permissible. Follow-up: Follow up with a survey workers supervisor tomorrow as scheduled even if well. Summary of care provided to patient. Understanding of the discharge instructions verbalized by patient. (Electronically signed by Pushpa Bianchi A.R.N.P. 09/01/2016 21:20)
--- NOTE | 2016-09-01 21:20 | ED MAR SUMMARY ---
..... Medication Administration Record [facility] [address] [place] [address] Patient: CATRINA PAN Visit ID: [id number] 36y, F Weight: 72.5 kg Height/Length: 64 in BMI: 27.5 ALLERGIES: None Given 20:09/01/2016 Cal Zapata, RLuis AngelNLuis Angel Medication Administered: HYDROCODONE-APAP [PO] (HYDROCODONE-ACETAMINOPHEN), Dose: 1 tab 5/325 mg Tablets PO. Medication Ordered: Hydrocodone-APAP PO 5/325 mg (NOW, HIGH ALERT MEDICATION). Given 20:09/01/2016 Cal Zapata, RLuis AngelN. Medication Administered: PEPCID [PO] (FAMOTIDINE), Dose: 40 mg Tablets PO. Medication Ordered: Pepcid PO 40 mg (NOW).
--- NOTE | 2016-09-01 21:20 | ED DISCHARGE INSTRUCTIONS ---
Patient: CATRINA PAN General Instructions [facility] VisitID: [id number] [place] [address] 36y, F Registration Date/Time: 09/01/2016 Acute epigastric abdominal pain of undetermined cause. INSTRUCTIONS Warnings: GENERAL WARNINGS: Return or contact your physician immediately if your condition worsens or changes unexpectedly, if not improving as expected, or if other problems arise. SPECIFICALLY, return if you develop pain in the abdomen or pelvis, fever, the inability to keep fluids down, blood in vomitus, blood in diarrhea, fainting or lightheadedness. Prescription Medications: Pepcid 20 mg RPD: take 1 orally every 12 hours. Dispense thirty (30). No refills. Ultram 50 mg tablets: take 1-2 orally every 6 hours as needed for pain. Dispense twenty (20). No refills. Substitution is permissible. Follow-up: Follow up with a epic director tomorrow as scheduled even if well. Summary of care provided to patient. Understanding of the discharge instructions verbalized by patient. ADDITIONAL INFORMATION Abdominal Pain, Unknown Cause (Female) The exact cause of your abdominal (stomach) pain is not certain. This does not mean that this is something to worry about, or the right tests were not done. Everyone likes to know the exact cause of the problem, but sometimes with abdominal pain, there is no clear-cut cause, and this could be a good thing. The good news is that your symptoms can be treated, and you will feel better. Your condition does not seem serious now; however, sometimes the signs of a serious problem may take more time to appear. For this reason,it is important for you to watch for any new symptoms, problems,or worsening of your condition. Over the next few days, the abdominal pain may come and go, or be continuous. Other common symptoms can include nausea and vomiting. Sometimes it can be difficult to tell if you feel nauseous, you may just feel bad and not associate that feeling with nausea. Constipation, diarrhea, and a fever may go along with the pain. The pain may continue even if treated correctly over the following days. Depending on how things go, sometimes the cause can become clear and may require further or different treatment. Additional evaluations, medications, or tests may be needed. Home care Your health care provider may prescribe medications for pain, symptoms, or an infection. Follow the health care provider's instructions for taking these medications. General care Rest until your next exam. No strenuous activities. Try to find positions that ease discomfort. A small pillow placed on the abdomen may help relieve pain. Something warm on your abdomen (such as a heating pad) may help, but be careful not to burn yourself. Diet Do not force yourself to eat, especially if having cramps, vomiting, or diarrhea. Water is important so you do not get dehydrated. Soup may also be good. Sports drinks may also help, especially if they are not too acidic. Make sure you don't drink sugary drinks as this can make things worse. Take liquids in small amounts. Do not guzzle them. Caffeine sometimes makes the pain and cramping worse. Avoid dairy products if you have vomiting or diarrhea. Don't eat large amounts at a time. Wait a few minutes between bites. Eat a diet low in fiber (called a low-residue diet). Foods allowed include refined breads, white rice, fruit and vegetable juices without pulp, tender meats. These foods will pass more easily through the intestine. Avoid whole-grain foods, whole fruits and vegetables, meats, seeds and nuts, fried or fatty foods, dairy, alcohol and spicy foods until your symptoms go away. Follow-up care Follow up with your health care provider as instructed, or if your pain does not begin to improve in the next 24 hours. When to seek medical care Seek prompt medical care if any of the following occur: Pain gets worse or moves to the right lower abdomen New or worsening vomiting or diarrhea Swelling of the abdomen Unable to pass stool for more than three days Fever of 100.4F (38C) or higher, or as directed by your healthcare provider. Blood in vomit or bowel movements (dark red or black color) Jaundice (yellow color of eyes and skin) Weakness, dizziness Chest, arm, back, neck or jaw pain Unexpected vaginal bleeding or missed period Call 911 Call emergency services if any of the following occur: Trouble breathing Confusion Fainting or loss of consciousness Rapid heart rate Seizure Famotidine Oral tablet What is this medicine? FAMOTIDINE (aayush urena) is a type of antihistamine that blocks the release of stomach acid. It is used to treat stomach or intestinal ulcers. It can also relieve heartburn from acid reflux. How should I use this medicine? Take this medicine by mouth with a glass of water. Follow the directions on the prescription label. If you only take this medicine once a day, take it at bedtime. Take your doses at regular intervals. Do not take your medicine more often than directed. Talk to your assistant city attorney regarding the use of this medicine in children. Special care may be needed. What side effects may I notice from receiving this medicine? Side effects that you should report to your doctor or health acute care physician as soon as possible: agitation, nervousness confusion hallucinations skin rash, itching Side effects that usually do not require medical attention (report to your doctor or health acute care physician if they continue or are bothersome): constipation diarrhea dizziness headache What may interact with this medicine? delavirdine itraconazole ketoconazole What if I miss a dose? If you miss a dose, take it as soon as you can. If it is almost time for your next dose, take only that dose. Do not take double or extra doses. Where should I keep my medicine? Keep out of the reach of children. Store at room temperature between 15 and 30 degrees C (59 and 86 degrees F). Do not freeze. Throw away any unused medicine after the expiration date. What should I tell my health care provider before I take this medicine? They need to know if you have any of these conditions: kidney or liver disease trouble swallowing an unusual or allergic reaction to famotidine, other medicines, foods, dyes, or preservatives or trying to get breast-feeding What should I watch for while using this medicine? Tell your doctor or health acute care physician if your condition does not start to get better or if it gets worse. Finish the full course of tablets prescribed, even if you feel better. Do not take with aspirin, ibuprofen or other antiinflammatory medicines. These can make your condition worse. Do not smoke cigarettes or drink alcohol. These cause irritation in your stomach and can increase the time it will take for ulcers to heal. If you get black, tarry stools or vomit up what looks like coffee grounds, call your doctor or health acute care physician at once. You may have a bleeding ulcer. Tramadol Hydrochloride Oral tablet What is this medicine? TRAMADOL (TRA ma dole) is a pain reliever. It is used to treat moderate to severe pain in adults. How should I use this medicine? Take this medicine by mouth with a full glass of water. Follow the directions on the prescription label. If the medicine upsets your stomach, take it with food or milk. Do not take more medicine than you are told to take. Talk to your assistant city attorney regarding the use of this medicine in children. Special care may be needed. What side effects may I notice from receiving this medicine? Side effects that you should report to your doctor or health acute care physician as soon as possible: allergic reactions like skin rash, itching or hives, swelling of the face, lips, or tongue breathing difficulties, wheezing confusion itching light headedness or fainting spells redness, blistering, peeling or loosening of the skin, including inside the mouth seizures Side effects that usually do not require medical attention (report to your doctor or health acute care physician if they continue or are bothersome): constipation dizziness drowsiness headache nausea, vomiting What may interact with this medicine? Do not take this medicine with any of the following medications: MAOIs like Carbex, Eldepryl, Marplan, Nardil, and Parnate This medicine may also interact with the following medications: alcohol or medicines that contain alcohol antihistamines benzodiazepines bupropion carbamazepine or oxcarbazepine clozapine cyclobenzaprine digoxin furazolidone linezolid medicines for depression, anxiety, or psychotic disturbances medicines for migraine headache like almotriptan, eletriptan, frovatriptan, naratriptan, rizatriptan, sumatriptan, zolmitriptan medicines for pain like pentazocine, buprenorphine, butorphanol, meperidine, nalbuphine, and propoxyphene medicines for sleep muscle relaxants naltrexone phenobarbital phenothiazines like perphenazine, thioridazine, chlorpromazine, mesoridazine, fluphenazine, prochlorperazine, promazine, and trifluoperazine procarbazine warfarin What if I miss a dose? If you miss a dose, take it as soon as you can. If it is almost time for your next dose, take only that dose. Do not take double or extra doses. Where should I keep my medicine? Keep out of the reach of children. Store at room temperature between 15 and 30 degrees C (59 and 86 degrees F). Keep container tightly closed. Throw away any unused medicine after the expiration date. What should I tell my health care provider before I take this medicine? They need to know if you have any of these conditions: brain tumor depression drug abuse or addiction head injury if you frequently drink alcohol containing drinks kidney disease or trouble passing urine liver disease lung disease, asthma, or breathing problems seizures or epilepsy suicidal thoughts, plans, or attempt; a previous suicide attempt by you or a family member an unusual or allergic reaction to tramadol, codeine, other medicines, foods, dyes, or preservatives or trying to get breast-feeding What should I watch for while using this medicine? Tell your doctor or health acute care physician if your pain does not go away, if it gets worse, or if you have new or a different type of pain. You may develop tolerance to the medicine. Tolerance means that you will need a higher dose of the medicine for pain relief. Tolerance is normal and is expected if you take this medicine for a long time. Do not suddenly stop taking your medicine because you may develop a severe reaction. Your body becomes used to the medicine. This does NOT mean you are addicted. Addiction is a behavior related to getting and using a drug for a non-medical reason. If you have pain, you have a medical reason to take pain medicine. Your doctor will tell you how much medicine to take. If your doctor wants you to stop the medicine, the dose will be slowly lowered over time to avoid any side effects. You may get drowsy or dizzy. Do not drive, use machinery, or do anything that needs mental alertness until you know how this medicine affects you. Do not stand or sit up quickly, especially if you are an older patient. This reduces the risk of dizzy or fainting spells. Alcohol can increase or decrease the effects of this medicine. Avoid alcoholic drinks. You may have constipation. Try to have a bowel movement at least every 2 to 3 days. If you do not have a bowel movement for 3 days, call your doctor or health acute care physician. Your mouth may get dry. Chewing sugarless gum or sucking hard candy, and drinking plenty of water may help. Contact your doctor if the problem does not go away or is severe. You have been given the following additional information: Abdominal Pain, Unknown Cause, (Female) Famotidine Oral tablet Tramadol Hydrochloride Oral tablet (Electronically signed by Pushpa Bianchi A.R.N.P. 09/01/2016 21:20)
--- NOTE | 2016-09-01 21:20 | ED MED RECONCILIATION SUMMARY ---
Patient: CATRINA PAN Medication Reconciliation Report [facility] VisitID: [id number] [place] [address] 36y, F Registration Date/Time: 09/01/2016 Weight: 72.5 kg Height/Length: 64 in. BMI: 27.5 ALLERGIES: None The patient's Home Medications are listed below: THE FOLLOWING MEDICATIONS NEED TO BE RECONCILED: Calcium + D3 Oral Effe Effexor XR Oral Vitamins Oral Prevacid Prevacid Oral The source(s) of the original Home Medication information: patient The following Medications were given to the patient in the Emergency Department: Hydrocodone-APAP [PO] PO 1 tab, administered: 09/01/2016 8:21:00 PM Pepcid [PO] PO 40 mg, administered: 09/01/2016 8:21:00 PM The following Medications were prescribed to the patient: Pepcid 20 mg RPD: take 1 orally every 12 hours. Dispense thirty (30). No refills. -- Pushpa Bianchi A.R.N.P. Ultram 50 mg tablets: take 1-2 orally every 6 hours as needed for pain. Dispense twenty (20). No refills. Substitution is permissible. -- Pushpa Bianchi A.R.N.P.
--- NOTE | 2016-09-01 21:20 | ED MAR SUMMARY ---
..... Medication Administration Record [facility] [address] [place] [address] Patient: CATRINA PAN Visit ID: [id number] 36y, F Weight: 72.5 kg Height/Length: 64 in BMI: 27.5 ALLERGIES: None Given 20:09/01/2016 Cal Zapata, RLuis AngelNLuis Angel Medication Administered: HYDROCODONE-APAP [PO] (HYDROCODONE-ACETAMINOPHEN), Dose: 1 tab 5/325 mg Tablets PO. Medication Ordered: Hydrocodone-APAP PO 5/325 mg (NOW, HIGH ALERT MEDICATION). Given 20:09/01/2016 Cal Zapata, RLuis AngelN. Medication Administered: PEPCID [PO] (FAMOTIDINE), Dose: 40 mg Tablets PO. Medication Ordered: Pepcid PO 40 mg (NOW).
--- NOTE | 2016-09-01 21:20 | ED MED RECONCILIATION SUMMARY ---
Patient: CATRINA PAN Medication Reconciliation Report [facility] VisitID: [id number] [place] [address] 36y, F Registration Date/Time: 09/01/2016 Weight: 72.5 kg Height/Length: 64 in. BMI: 27.5 ALLERGIES: None The patient's Home Medications are listed below: THE FOLLOWING MEDICATIONS NEED TO BE RECONCILED: Calcium + D3 Oral Effe Effexor XR Oral Vitamins Oral Prevacid Prevacid Oral The source(s) of the original Home Medication information: patient The following Medications were given to the patient in the Emergency Department: Hydrocodone-APAP [PO] PO 1 tab, administered: 09/01/2016 8:21:00 PM Pepcid [PO] PO 40 mg, administered: 09/01/2016 8:21:00 PM The following Medications were prescribed to the patient: Pepcid 20 mg RPD: take 1 orally every 12 hours. Dispense thirty (30). No refills. -- Pushpa Bianchi A.R.N.P. Ultram 50 mg tablets: take 1-2 orally every 6 hours as needed for pain. Dispense twenty (20). No refills. Substitution is permissible. -- Pushpa Bianchi A.R.N.P.
--- NOTE | 2016-09-01 21:20 | ED DISCHARGE INSTRUCTIONS ---
Patient: CATRINA PAN General Instructions [facility] VisitID: [id number] [place] [address] 36y, F Registration Date/Time: 09/01/2016 Acute epigastric abdominal pain of undetermined cause. INSTRUCTIONS Warnings: GENERAL WARNINGS: Return or contact your physician immediately if your condition worsens or changes unexpectedly, if not improving as expected, or if other problems arise. SPECIFICALLY, return if you develop pain in the abdomen or pelvis, fever, the inability to keep fluids down, blood in vomitus, blood in diarrhea, fainting or lightheadedness. Prescription Medications: Pepcid 20 mg RPD: take 1 orally every 12 hours. Dispense thirty (30). No refills. Ultram 50 mg tablets: take 1-2 orally every 6 hours as needed for pain. Dispense twenty (20). No refills. Substitution is permissible. Follow-up: Follow up with a lye machine operator tomorrow as scheduled even if well. Summary of care provided to patient. Understanding of the discharge instructions verbalized by patient. ADDITIONAL INFORMATION Abdominal Pain, Unknown Cause (Female) The exact cause of your abdominal (stomach) pain is not certain. This does not mean that this is something to worry about, or the right tests were not done. Everyone likes to know the exact cause of the problem, but sometimes with abdominal pain, there is no clear-cut cause, and this could be a good thing. The good news is that your symptoms can be treated, and you will feel better. Your condition does not seem serious now; however, sometimes the signs of a serious problem may take more time to appear. For this reason,it is important for you to watch for any new symptoms, problems,or worsening of your condition. Over the next few days, the abdominal pain may come and go, or be continuous. Other common symptoms can include nausea and vomiting. Sometimes it can be difficult to tell if you feel nauseous, you may just feel bad and not associate that feeling with nausea. Constipation, diarrhea, and a fever may go along with the pain. The pain may continue even if treated correctly over the following days. Depending on how things go, sometimes the cause can become clear and may require further or different treatment. Additional evaluations, medications, or tests may be needed. Home care Your health care provider may prescribe medications for pain, symptoms, or an infection. Follow the health care provider's instructions for taking these medications. General care Rest until your next exam. No strenuous activities. Try to find positions that ease discomfort. A small pillow placed on the abdomen may help relieve pain. Something warm on your abdomen (such as a heating pad) may help, but be careful not to burn yourself. Diet Do not force yourself to eat, especially if having cramps, vomiting, or diarrhea. Water is important so you do not get dehydrated. Soup may also be good. Sports drinks may also help, especially if they are not too acidic. Make sure you don't drink sugary drinks as this can make things worse. Take liquids in small amounts. Do not guzzle them. Caffeine sometimes makes the pain and cramping worse. Avoid dairy products if you have vomiting or diarrhea. Don't eat large amounts at a time. Wait a few minutes between bites. Eat a diet low in fiber (called a low-residue diet). Foods allowed include refined breads, white rice, fruit and vegetable juices without pulp, tender meats. These foods will pass more easily through the intestine. Avoid whole-grain foods, whole fruits and vegetables, meats, seeds and nuts, fried or fatty foods, dairy, alcohol and spicy foods until your symptoms go away. Follow-up care Follow up with your health care provider as instructed, or if your pain does not begin to improve in the next 24 hours. When to seek medical care Seek prompt medical care if any of the following occur: Pain gets worse or moves to the right lower abdomen New or worsening vomiting or diarrhea Swelling of the abdomen Unable to pass stool for more than three days Fever of 100.4F (38C) or higher, or as directed by your healthcare provider. Blood in vomit or bowel movements (dark red or black color) Jaundice (yellow color of eyes and skin) Weakness, dizziness Chest, arm, back, neck or jaw pain Unexpected vaginal bleeding or missed period Call 911 Call emergency services if any of the following occur: Trouble breathing Confusion Fainting or loss of consciousness Rapid heart rate Seizure Famotidine Oral tablet What is this medicine? FAMOTIDINE (aayush urena) is a type of antihistamine that blocks the release of stomach acid. It is used to treat stomach or intestinal ulcers. It can also relieve heartburn from acid reflux. How should I use this medicine? Take this medicine by mouth with a glass of water. Follow the directions on the prescription label. If you only take this medicine once a day, take it at bedtime. Take your doses at regular intervals. Do not take your medicine more often than directed. Talk to your winder fixer regarding the use of this medicine in children. Special care may be needed. What side effects may I notice from receiving this medicine? Side effects that you should report to your doctor or health critical care nurse practitioner as soon as possible: agitation, nervousness confusion hallucinations skin rash, itching Side effects that usually do not require medical attention (report to your doctor or health critical care nurse practitioner if they continue or are bothersome): constipation diarrhea dizziness headache What may interact with this medicine? delavirdine itraconazole ketoconazole What if I miss a dose? If you miss a dose, take it as soon as you can. If it is almost time for your next dose, take only that dose. Do not take double or extra doses. Where should I keep my medicine? Keep out of the reach of children. Store at room temperature between 15 and 30 degrees C (59 and 86 degrees F). Do not freeze. Throw away any unused medicine after the expiration date. What should I tell my health care provider before I take this medicine? They need to know if you have any of these conditions: kidney or liver disease trouble swallowing an unusual or allergic reaction to famotidine, other medicines, foods, dyes, or preservatives or trying to get breast-feeding What should I watch for while using this medicine? Tell your doctor or health critical care nurse practitioner if your condition does not start to get better or if it gets worse. Finish the full course of tablets prescribed, even if you feel better. Do not take with aspirin, ibuprofen or other antiinflammatory medicines. These can make your condition worse. Do not smoke cigarettes or drink alcohol. These cause irritation in your stomach and can increase the time it will take for ulcers to heal. If you get black, tarry stools or vomit up what looks like coffee grounds, call your doctor or health critical care nurse practitioner at once. You may have a bleeding ulcer. Tramadol Hydrochloride Oral tablet What is this medicine? TRAMADOL (TRA ma dole) is a pain reliever. It is used to treat moderate to severe pain in adults. How should I use this medicine? Take this medicine by mouth with a full glass of water. Follow the directions on the prescription label. If the medicine upsets your stomach, take it with food or milk. Do not take more medicine than you are told to take. Talk to your winder fixer regarding the use of this medicine in children. Special care may be needed. What side effects may I notice from receiving this medicine? Side effects that you should report to your doctor or health critical care nurse practitioner as soon as possible: allergic reactions like skin rash, itching or hives, swelling of the face, lips, or tongue breathing difficulties, wheezing confusion itching light headedness or fainting spells redness, blistering, peeling or loosening of the skin, including inside the mouth seizures Side effects that usually do not require medical attention (report to your doctor or health critical care nurse practitioner if they continue or are bothersome): constipation dizziness drowsiness headache nausea, vomiting What may interact with this medicine? Do not take this medicine with any of the following medications: MAOIs like Carbex, Eldepryl, Marplan, Nardil, and Parnate This medicine may also interact with the following medications: alcohol or medicines that contain alcohol antihistamines benzodiazepines bupropion carbamazepine or oxcarbazepine clozapine cyclobenzaprine digoxin furazolidone linezolid medicines for depression, anxiety, or psychotic disturbances medicines for migraine headache like almotriptan, eletriptan, frovatriptan, naratriptan, rizatriptan, sumatriptan, zolmitriptan medicines for pain like pentazocine, buprenorphine, butorphanol, meperidine, nalbuphine, and propoxyphene medicines for sleep muscle relaxants naltrexone phenobarbital phenothiazines like perphenazine, thioridazine, chlorpromazine, mesoridazine, fluphenazine, prochlorperazine, promazine, and trifluoperazine procarbazine warfarin What if I miss a dose? If you miss a dose, take it as soon as you can. If it is almost time for your next dose, take only that dose. Do not take double or extra doses. Where should I keep my medicine? Keep out of the reach of children. Store at room temperature between 15 and 30 degrees C (59 and 86 degrees F). Keep container tightly closed. Throw away any unused medicine after the expiration date. What should I tell my health care provider before I take this medicine? They need to know if you have any of these conditions: brain tumor depression drug abuse or addiction head injury if you frequently drink alcohol containing drinks kidney disease or trouble passing urine liver disease lung disease, asthma, or breathing problems seizures or epilepsy suicidal thoughts, plans, or attempt; a previous suicide attempt by you or a family member an unusual or allergic reaction to tramadol, codeine, other medicines, foods, dyes, or preservatives or trying to get breast-feeding What should I watch for while using this medicine? Tell your doctor or health critical care nurse practitioner if your pain does not go away, if it gets worse, or if you have new or a different type of pain. You may develop tolerance to the medicine. Tolerance means that you will need a higher dose of the medicine for pain relief. Tolerance is normal and is expected if you take this medicine for a long time. Do not suddenly stop taking your medicine because you may develop a severe reaction. Your body becomes used to the medicine. This does NOT mean you are addicted. Addiction is a behavior related to getting and using a drug for a non-medical reason. If you have pain, you have a medical reason to take pain medicine. Your doctor will tell you how much medicine to take. If your doctor wants you to stop the medicine, the dose will be slowly lowered over time to avoid any side effects. You may get drowsy or dizzy. Do not drive, use machinery, or do anything that needs mental alertness until you know how this medicine affects you. Do not stand or sit up quickly, especially if you are an older patient. This reduces the risk of dizzy or fainting spells. Alcohol can increase or decrease the effects of this medicine. Avoid alcoholic drinks. You may have constipation. Try to have a bowel movement at least every 2 to 3 days. If you do not have a bowel movement for 3 days, call your doctor or health critical care nurse practitioner. Your mouth may get dry. Chewing sugarless gum or sucking hard candy, and drinking plenty of water may help. Contact your doctor if the problem does not go away or is severe. You have been given the following additional information: Abdominal Pain, Unknown Cause, (Female) Famotidine Oral tablet Tramadol Hydrochloride Oral tablet (Electronically signed by Pushpa Bianchi A.R.N.P. 09/01/2016 21:20)
== END 2016-09-01 20:41 | disposition home or self-care (01) ==
LOC: ED SRH 19:20
DX: R10.13 Epigastric pain (principal)